=== PATIENT | male | born 1970 | race Caucasian/White ===

== ENCOUNTER 2021-12-24 16:54 | Emergency (ER) | payer MEDICAID ==
[~2021-12-24] VITALS: Ht 172.7 cm; Wt 46.0 kg
[2021-12-24] MEDS ORDERED: SODIUM CHLORIDE 0.9% 1,000 ML IV ONE ×2 (18:00→20:00)
[2021-12-24 18:19] LABS: BASOPHILS % 0.7 % (0.0-2.0); EOSINOPHILS % 3.2 % (0.0-5.0); HEMATOCRIT. 43.8 % (42.0-52.0); LYMPHOCYTES % 53.8 % (20.0-50.0); MEAN CORPUSCULAR HEMOGLOBIN 32.8 pg (28.0-32.0); MEAN PLATELET VOLUME 10.5 fl (7.4-10.4); MONOCYTES % 3.1 % (2.0-8.0); NEUTROPHILS % 39.2 % (40.0-76.0); PLATELET 176 x1000/uL (130-400); RED BLOOD CELL COUNT 4.87 mill/uL (4.7-6.1); RED CELL DISTRIBUTION WIDTH 12.9 % (11.6-14.6)
[2021-12-24 19:09] LABS: CHLORIDE 98 mEq/L (98-107)
[2021-12-24 19:20] LABS: ETHANOL BLOOD 248 mg/dL
[2021-12-24 20:00] VITALS: BP 100/68
[2021-12-24] MEDS ORDERED: INSULIN REGULAR (HUMULIN R) 300UNITS/3ML VIAL SUBCUT NR (20:00)
[2021-12-24] MEDS ORDERED: INSULIN REGULAR (HUMULIN R) UD 100 UNITS/ML SYR SUBCUT ONE (20:00)
[2021-12-24] MEDS ORDERED: SODIUM CHLORIDE 0.9% 1,000 ML IV STA (20:12)
[2021-12-24] MEDS ORDERED: INSULIN REGULAR (DRIP) 100 UNITS in SODIUM CHLORIDE 0.9% 100 ML IV ONE (20:15)
[2021-12-24] MEDS ORDERED: DEXTROSE 50% WATER 50ML (25GM) IV PRN (20:30)
[2021-12-24] MEDS ORDERED: BLOOD SUGAR DIAGNOSTIC STRIP TEST SCH (20:30)
[2021-12-24] MEDS ORDERED: DEXTROSE 50% WATER 25ML (12.5GM) IV PRN (20:30)
[2021-12-24 20:46] LABS: BG BASE EXCESS 0.3 mmol/L (-2.0-2.0); BG CARBOXYHEMOGLOBIN 0.9 % (0.5-1.5); BG DEOXYHEMOGLOBIN 2.2 % (0.0-5.0); BG FRACTION INSPIRED OXYGEN 21; BG HCO3 ACT 22.9 mmol/L (22.0-26.0); BG METHEMOGLOBIN 0.2 % (0.0-1.5); BG OXYGEN SATURATION 97.8 % (92.0-98.5); BG OXYHEMOGLOBIN 96.7 % (94.0-97.0); BG PCO2 31.2 mmHg (35.0-45.0); BG PH 7.483 (7.350-7.450); BG PO2 100.5 mmHg (75.0-100.0); BG SAMPLE SITE RIGHT RADIAL; BG TOTAL HEMOGLOBIN 13.6 g/dL (12.0-18.0); BG VENT MODE ROOM AIR
[2021-12-24] MEDS ORDERED: INSULIN REGULAR 100U/100ML PMX 100 ML IV NR (21:15)
[2021-12-24 23:33] LABS: CHLORIDE 104 mEq/L (98-107)
[2021-12-25 00:57] LABS: CHLORIDE 107 mEq/L (98-107)
[2021-12-25] MEDS ORDERED: POTASSIUM CHLORIDE 20MEQ/PACKET PO ONE (01:30)
[2021-12-25] MEDS ORDERED: KCL 10MEQ/50ML PREMIX 50 ML IV ONE (01:30)
== END 2021-12-25 02:02 | disposition short-term general hospital (02) ==
LOC: ER 16:54 → CANBEDREQ 12-25 11:48
DX: E11.10 Type 2 diabetes mellitus with ketoacidosis without coma (principal); F10.129 Alcohol abuse with intoxication, unspecified; S19.9XXA Unspecified injury of neck, initial encounter; I10 Essential (primary) hypertension; Y90.8 Blood alcohol level of 240 mg/100 ml or more; E87.6 Hypokalemia; Z20.822 Contact with and (suspected) exposure to COVID-19; G47.30 Sleep apnea, unspecified; W01.10XA Fall on same level from slipping, tripping and stumbling with subsequent striking against unspecified object, initial encounter; Y93.89 Activity, other specified; Y92.39 Other specified sports and athletic area as the place of occurrence of the external cause; Z79.4 Long term (current) use of insulin
CPT/HCPCS: 36415; 36600; 70450; 71045; 72125; 80048; 80053; 80320; 82375; 82805; 82962; 83880; 84484; 85025; 87426; 93005; 96360; 96361; 96372; 99291; C9803; J1815; J3480; J7030; G0480